=== PATIENT | male | born 1955 | race Caucasian/White ===

== ENCOUNTER 2019-08-30 11:03 | Emergency (ER) | payer OTHER, SELFPAY ==
[2019-08-30 11:11] VITALS: BP 145/78; PULSE 109; RESP 18; TEMP 36.9; O2SAT 100
--- NOTE | 2019-08-30 11:37 | ED.EAR ---
HPI - Ear Problem General Chief complaint: Upper Respiratory Infection Stated complaint: ears clogged Time Seen by Provider: 08/30/19 11:29 Source: patient and RN notes reviewed Mode of arrival: ambulatory Limitations: no limitations History of Present Illness HPI Narrative: Patient presents today complaining of clogging to his right ear with possible cerumen impaction. Symptoms have been present for 1 week with muffled hearing. Denies pain. Denies any trauma to the ear. He has been using earwax softening drops without result. Denies any recent sick symptoms. MD Complaint: decreased hearing Related Data Home Medications Medication Instructions Recorded Confirmed aspirin [Adult Low Dose Aspirin] 08/30/19 atorvastatin 08/30/19 empagliflozin [Jardiance] mg 08/30/19 glimepiride mg 08/30/19 hydroxyurea 08/30/19 levetiracetam PO 08/30/19 losartan 08/30/19 metformin mg 08/30/19 Allergies Allergy/AdvReac Type Severity Reaction Status Date / Time No Known Allergies Allergy Verified 08/30/19 11:15 Review of Systems Review of Systems: Narrative: CONSTITUTIONAL: Denies body aches, fever, chills, or sweats. EYES: Denies visual changes, redness, or discharge. ENT: Denies rhinorrhea, congestion, sore throat, or otalgia. Right ear clogged CARDIOVASCULAR: Denies chest pain, palpitations, or edema. RESPIRATORY: Denies cough or dyspnea. GASTROINTESTINAL: Denies abdominal pain, nausea, vomiting, or diarrhea. GENITOURINARY: Denies dysuria or hematuria. SKIN: Denies rash, itching, or wounds. MUSCULOSKELETAL: Denies back pain, joint pain, or myalgia. NEUROLOGIC: Denies headache, numbness, tingling, or weakness. PSYCH: Denies depression or anxiety. [facility] Past Medical History Medical History (Updated 08/30/19 @ 12:31 by Rebecca Cardoso, [employer], ) Hypercholesterolemia Hypertension Leukemia Comments At time of signature, I have reviewed and agree with nursing past medical, surgical, social and family history unless otherwise noted. Please see nursing chart for further information. There is no relevant family history pertinent to the presenting complaint Exam Narrative: Exam Narrative: GENERAL: Well-appearing, well-nourished, and in no acute distress. HEAD: Normocephalic, atraumatic. EYES: EOMI. No redness or drainage. Conjunctivae normal. ENT: Mucous membranes pink and moist. Nares clear. No rhinorrhea. Left ear canal and TM normal. Right ear canal normal. Right TM is injected with hematotympanum. NECK: Normal AROM. Supple. No lymphadenopathy. CHEST: No respiratory distress. EXTREMITIES: Normal range of motion. No edema. SKIN: Warm, dry, no rash. NEURO: No focal deficits. Alert and oriented x3. Gait steady. PSYCH: Normal affect. No signs of depression or anxiety. Course Vital Signs Vital signs: Vital Signs Temperature 98.5 F 08/30/19 11:11 Pulse Rate 109 H 08/30/19 11:11 Respiratory Rate 18 08/30/19 11:11 Blood Pressure 145/78 H 08/30/19 11:11 Pulse Oximetry 100 08/30/19 11:11 Temperature 98.5 F 08/30/19 11:11 Pulse Rate 109 H 08/30/19 11:11 Respiratory Rate 18 08/30/19 11:11 Blood Pressure 145/78 H 08/30/19 11:11 Pulse Oximetry 100 08/30/19 11:11 Reviewed. Pt has been instructed to follow up with his PCP regarding his elevated blood pressure today. Medical Decision Making Differential Diagnosis Differential Diagnosis: Otitis media, otitis externa, ruptured TM, serous otitis, eustachian tube dysfunction, cerumen impaction, hematotympanum Vital Signs Vital Signs: Vital Signs Temperature 98.5 F 08/30/19 11:11 Pulse Rate 109 H 08/30/19 11:11 Respiratory Rate 18 08/30/19 11:11 Blood Pressure 145/78 H 08/30/19 11:11 Pulse Oximetry 100 08/30/19 11:11 Temperature 98.5 F 08/30/19 11:11 Pulse Rate 109 H 08/30/19 11:11 Respiratory Rate 18 08/30/19 11:11 Blood Pressure 145/78 H 08/30/19 11:11 Pulse Oximetry 100 08/30/19 11:11
== END 2019-08-30 11:40 | disposition home or self-care (01) ==
PROVIDERS: Emergency Provider Nurse Practitioner; PCP Family Medicine
DX: H66.91 Otitis media, unspecified, right ear (principal); H74.8X1 Other specified disorders of right middle ear and mastoid; E78.00 Pure hypercholesterolemia, unspecified; I10 Essential (primary) hypertension; E11.9 Type 2 diabetes mellitus without complications; C95.90 Leukemia, unspecified not having achieved remission
CPT/HCPCS: 99213; G0463

== ENCOUNTER 2019-11-18 08:57 | Outpatient (CLI) | payer OTHER, SELFPAY | END 2019-11-18 08:58 | disposition home or self-care (01) | PROVIDERS: PCP Family Medicine; Visit Provider Otolaryngology | DX: Z01.812 Encounter for preprocedural laboratory examination (principal); Z20.828 Contact with and (suspected) exposure to other viral communicable diseases | CPT/HCPCS: 87635; C9803; U0003 ==

== ENCOUNTER 2019-11-18 10:20 | Outpatient (CLI) | payer OTHER, SELFPAY ==
--- NOTE | 2019-11-18 10:23 | ECG_ITS ---
Measurements Intervals [place] Rate: 91 P: 47 VA: 176 QRS: 40 QRSD: 88 T: 35 QT: 340 QTc: 420 Interpretive Statements SINUS RHYTHM BASELINE ARTIFACT- I, II, AVR, AVL, AVF, V6 NORMAL ECG Electronically Signed On 11-18-2019 10:39:53 CDT by Shashank Seay D.O.
[2019-11-18 11:14] LABS: Blood Urea Nitrogen 21 mg/dL (9-20); Calcium 9.6 mg/dL (8.4-10.2); Carbon Dioxide 26 mmol/L (22-30); Chloride 100 mmol/L (98-107); Estimated Glomerular Filt Rate > 60; Glucose 210 mg/dL (75-110); Potassium 4.7 mmol/L (3.4-5.0); Sodium 136 mmol/L (137-145)
== END 2019-11-18 10:21 | disposition home or self-care (01) ==
LOC: ANHSURGERY 10:23
PROVIDERS: Anesthesiology; PCP Family Medicine; Visit Provider Otolaryngology
DX: Z01.818 Encounter for other preprocedural examination (principal); I10 Essential (primary) hypertension
CPT/HCPCS: 36415; 80048; 93005

== ENCOUNTER 2019-11-21 01:56 | Day surgery (SDC) | payer OTHER, SELFPAY ==
[2019-11-15 08:17] VITALS: BMI 27.4
--- NOTE | 2019-11-19 06:37 | PM.HPGS ---
History of Present Illness History of Present Illness Consent: Risks, benefits, and alternatives have been discussed and questions answered. Patient agrees to proceed with procedure. Chief complaint: Chronic Otitis Media Narrative: Luis Rose is a 64 year old male COUNT INCLUDES THE [facility] Social History Social History Smoking status: Never smoker Alcohol intake: current Substance use: never Gender identity (if verbalized by the patient): Male Meds Home Medications and Allergies Home Medications Medication Instructions Recorded Confirmed Type aspirin [Adult Low Dose Aspirin] 81 mg PO DAILY 08/30/19 11/15/19 History atorvastatin [Lipitor] 10 mg PO DAILY 08/30/19 11/15/19 History empagliflozin [Jardiance] 25 mg PO DAILY 08/30/19 11/15/19 History glimepiride [Amaryl] 4 mg PO DAILY 08/30/19 11/15/19 History hydroxyurea [Hydrea] 1,500 mg PO DAILY 08/30/19 11/15/19 History levetiracetam [Keppra XR] 500 mg PO BID 08/30/19 11/15/19 History losartan [Cozaar] 50 mg PO DAILY 08/30/19 11/15/19 History metformin [Glucophage] 1,000 mg PO BID 08/30/19 History levofloxacin 500 mg tablet 500 mg PO DAILY #10 tablet 10/09/19 11/15/19 Rx Allergies Allergy/AdvReac Type Severity Reaction Status Date / Time No Known Allergies Allergy Verified 11/15/19 08:19 Exam HENMT: Other: tympanic membranes retracted with fluid nose mild negative serous otitis bilateral Assessment and Plan Additional Plan Plan bilateral myringotomy and tubes
--- NOTE | 2019-11-21 06:22 | WPDHPUPDATE1 ---
History and Physical Update Update Date/Time: 11/21/19 06:22 History and Physical has been reviewed, including an updated exam of the patient. There are NO changes in the patient's condition. Risks, benefits, and alternatives have been discussed and questions answered. Patient agrees to proceed with procedure.
[2019-11-21] MEDS: LACTATED RINGERS 1,000 ML 30 ML IV CONT (07:16)
[2019-11-21 07:25] LABS: Glucose Point of Care 121 (65-105)
[2019-11-21 07:33] VITALS: BP 116/83; PULSE 95; RESP 16; TEMP 36.1; O2SAT 100
--- NOTE | 2019-11-21 07:44 | WPDANESEPPF ---
Anes - Initial Pre Proc Eval Procedure: Operation Date: 11/21/19 08:00 Proposed Procedures p Bilateral Myringotomy, Insertion Of T-Tubes - Tejinder East MD Date/Time: 11/21/19 07:44 Surgeon: Tejinder East MD Pre Op Diagnosis: Chronic Otitis Media Patient Data Age: 64 Gender: M Height: 5 ft 8 in Weight: 81.2 kg Last Vital Signs Temp 36.1 C L 11/21/19 07:33 Pulse 95 11/21/19 07:33 Resp 16 11/21/19 07:33 BP 116/83 11/21/19 07:33 Pulse Ox 100 11/21/19 07:33 Allergies Allergy/AdvReac Type Severity Reaction Status Date / Time No Known Allergies Allergy Verified 11/21/19 06:29 Home Medications Medication Instructions Recorded Confirmed Type aspirin [Adult Low Dose Aspirin] 81 mg PO DAILY 08/30/19 11/21/19 History atorvastatin [Lipitor] 10 mg PO DAILY 08/30/19 11/21/19 History empagliflozin [Jardiance] 25 mg PO DAILY 08/30/19 11/21/19 History glimepiride [Amaryl] 4 mg PO DAILY 08/30/19 11/21/19 History hydroxyurea [Hydrea] 1,500 mg PO DAILY 08/30/19 11/21/19 History levetiracetam [Keppra XR] 500 mg PO BID 08/30/19 11/21/19 History losartan [Cozaar] 50 mg PO DAILY 08/30/19 11/21/19 History metformin [Glucophage] 1,000 mg PO BID 08/30/19 11/21/19 History Laboratory Tests 11/21/19 07:22 POC Capillary Glucose 121 mg/dl H mg/dl (65-105) Patient hx anesthesia problems: none Family hx anesthesia problems: none PMFSH Past Medical History Medical History Hypercholesterolemia Hypertension Leukemia Right acute serous otitis media Social History Social History Smoking status: Never smoker Alcohol intake: current Substance use: never Gender identity (if verbalized by the patient): Male Anes - Eval Final PreProcedure Day of Procedure 11/21/19 07:44 Patient weight: overweight Heart: regular rate and rhythm Lungs: clear to auscultation Airway: Mallampati scale class II Neurological: alert and oriented Last oral intake: >/= 8 hours ASA classification: III Emergent: no Anesthetic plan: proceed Anesthesia type and monitoring: general and standard monitoring Informed Consent: The patient's anesthetic plan and its attendant risks and benefits were discussed with the patient/family/POA. Questions were solicited and answers provided to the satisfaction of the patient/family/POA.
[2019-11-21] MEDS: CIPROFLOXACIN HCL 0.3% OP SOLN 2.5 ML BTL 4 DROP EACH EAR (07:58)
--- NOTE | 2019-11-21 08:02 | PM.PROC ---
Procedure Note - Detailed Date of procedure: 11/21/19 Pre-op diagnosis: Chronic Otitis Media Post-op diagnosis: same Procedure performed: Procedures a unilateral myringotomy with T-tube Description of procedure: Patient was prepped and draped usual fashion on seizure the right ear had hole in it with purulence drainage no tube was inserted left ear was retracted anteroinferior incision made and a T-tube inserted drops placed in both ear canals Anesthesia: GETA Surgeon: Tejinder East MD Packing: No Pathology: none sent Complications: None Condition: stable Disposition: same day
[2019-11-21 08:06] VITALS: BP 117/58; PULSE 85; RESP 16; TEMP 36.1; O2SAT 99
[2019-11-21 08:20] VITALS: BP 111/54; PULSE 75; RESP 14; O2SAT 97
[2019-11-21 08:30] VITALS: BP 116/50; PULSE 78; RESP 14; O2SAT 96
[2019-11-21 08:44] VITALS: BP 124/47; PULSE 75; RESP 18; O2SAT 95
[2019-11-21 09:14] VITALS: BP 120/43; PULSE 71; RESP 17
== END 2019-11-21 09:30 | disposition home or self-care (01) ==
PROVIDERS: PCP Family Medicine; Visit Provider Otolaryngology
PROC: (CPT 69436; principal; 2019-11-21 08:00)
DX: H66.93 Otitis media, unspecified, bilateral (principal); I10 Essential (primary) hypertension; E78.00 Pure hypercholesterolemia, unspecified; Z79.82 Long term (current) use of aspirin; Z79.84 Long term (current) use of oral hypoglycemic drugs; Z85.6 Personal history of leukemia
CPT/HCPCS: 69436; J2704; J3010; J7120